=== PATIENT | female | born 1945 ===

== ENCOUNTER → 2016-09-07 | Outpatient (CLI) | payer OTHER, MEDICARE ==
--- NOTE | 2016-09-07 17:03 | DX ---
Chest, PA and Lateral History: Cough, URI Comparison: None Findings: Lung volumes are mildly prominent. There is retrocardiac mild and moderate bronchial wall t hickening. There is no focal infiltrate or consolidation. Heart size is relatively small, consistent with the prominent lung volumes. There is no pleural effusion, adenopathy or mass lesion. Bones are u nremarkable for age. Impression: Airways disease. No pneumonia.
== END ==
LOC: GIMAGING 16:21
PROVIDERS: ATTEND Internal Medicine Geriatric Medicine
DX: J45.909 Unspecified asthma, uncomplicated (principal); J98.8 Other specified respiratory disorders
CPT/HCPCS: 71020-PO